=== PATIENT | male | born 1985 | race Caucasian/White ===

== ENCOUNTER 2021-09-04 20:53 | Emergency (ER) | payer BC ==
[~2021-09-04] VITALS: Ht 177.8 cm; Wt 90.7 kg
[2021-09-04] MEDS ORDERED: IV NORMAL SALINE 1000 ML BAG IV ONE (21:30)
--- NOTE | 2021-09-04 21:32 | NUR ---
DR. ENG AT BEDSIDE, MSE IN PROGRESS.
[2021-09-04] MEDS ORDERED: IV NS 1000 ML 1,000 ML IV ONE (22:00)
[2021-09-04 22:43] LABS: CARBON DIOXIDE 22 mmol/L (21-32); CHLORIDE 101 mmol/L (98-107); CREATININE 1.3 mg/dL (0.6-1.3); GLUCOSE 160 mg/dL (74-106); POTASSIUM 3.4 mmol/L (3.5-5.1); UREA NITROGEN, BLOOD 22 mg/dL (7-18)
[2021-09-04] MEDS ORDERED: MIDAZOLAM HCL 2 MG/2 ML VIAL IV ONE (23:00)
[2021-09-04 23:03] LABS: ETHANOL < 3 MG/DL (0-0)
[2021-09-04] MEDS ORDERED: MIDAZOLAM HCL 2 MG/2 ML VIAL ONE (23:03)
[2021-09-04] MEDS ORDERED: KETAMINE HCL 500 MG/10 ML INJ IV ONE (23:45)
[2021-09-04] MEDS ORDERED: KETAMINE HCL 500 MG/10 ML INJ ONE (23:47)
[2021-09-05 00:08] LABS: ALKALINE PHOSPHATASE 85 U/L (50-136); ASPARTATE AMINOTRANSFERASE 101 U/L (15-37); BILIRUBIN,DIRECT 0.2 mg/dL (0.0-0.2); BILIRUBIN,TOTAL 0.5 mg/dL (0.2-1.0); TOTAL PROTEIN, SERUM 7.8 g/dL (6.4-8.2)
[2021-09-05 00:12] LABS: ACETAMINOPHEN < 2.0 ug/mL (10-30)
[2021-09-05 00:20] LABS: HEMATOCRIT 33.9 % (36.7-47.1); MEAN CORPUSCULAR VOLUME 76.8 fL (73.0-96.2); PLATELET COUNT (AUTO) 214 K/uL (152-348)
[2021-09-05] MEDS ORDERED: LORAZEPAM 2 MG/1 ML VIAL ONE (00:54)
[2021-09-05] MEDS ORDERED: HALOPERIDOL LACTATE 5 MG/1 ML VIAL ONE (00:54)
[2021-09-05] MEDS ORDERED: HALOPERIDOL LACTATE 5 MG/1 ML VIAL IM ONE (01:00)
[2021-09-05] MEDS ORDERED: LORAZEPAM 2 MG/1 ML VIAL IM ONE (01:00)
[2021-09-05 01:10] LABS: ALANINE AMINOTRANSFERASE 211 U/L (16-63)
[2021-09-05] MEDS ORDERED: KETAMINE HCL 500 MG/10 ML INJ ONE ×2 (01:23→01:56)
[2021-09-05] MEDS ORDERED: KETAMINE HCL 500 MG/10 ML INJ IV ONE ×2 (01:30→02:00)
--- NOTE | 2021-09-05 01:45 | NUR ---
PT NOTED TO BE IN BED, RESTING COMFORTABLY. BREATHING EVEN AND UNLABORED.
[2021-09-05] MEDS ORDERED: IV NORMAL SALINE 500 ML IV ONE (02:00)
[2021-09-05] MEDS ORDERED: MORPHINE SULFATE 4 MG/1 ML DISP.SYRIN IV ONE (02:15)
[2021-09-05] MEDS ORDERED: MORPHINE SULFATE 4 MG/1 ML DISP.SYRIN ONE (02:21)
[2021-09-05 04:20] LABS: *BILIRUBIN,URIN NEGATIVE (NEGATIVE); *BLOOD, URINE NEGATIVE (NEGATIVE); *CLARITY,URINE CLOUDY (CLEAR); *COLOR,URINE YELLOW (YELLOW); *KETONES,URINE NEGATIVE (NEGATIVE); *UROBILINOGEN,URINE 0.2 E.U./dl (NORMAL); LEUKOCYTE ESTERASE ,URINE NEGATIVE (NEGATIVE); NITRITE, URINE NEGATIVE (NEGATIVE); UGLUCOSE NEGATIVE (NEGATIVE)
[2021-09-05 04:31] LABS: *AMPHETAMINE, URINE NEGATIVE (NEGATIVE); *CANNABINOID, URINE POSITIVE (NEGATIVE); *COCCAINE, URINE NEGATIVE (NEGATIVE); *OPIATE, URINE POSITIVE (NEGATIVE); *PHENCYCLIDINE SCREEN,URINE NEGATIVE (NEGATIVE)
[2021-09-05 04:42] LABS: BACTERIA,URINE NONE SEEN /HPF (NONE SEEN); RBC,URINE 0-3 /HPF (0-3); SQUAMOUS EPITHELIAL CELL,UR NONE SEEN /HPF (NONE SEEN); URINE AMORPHOUS URATE MANY /HPF; WBC,URINE 0-3 /HPF (0-3)
--- NOTE | 2021-09-05 05:03 | NUR ---
PT AMBULATED TO RESTROOM STEADY GAIT. DENIES ANY FINK/DIZZYNESS. NO N/V/D.
--- NOTE | 2021-09-05 07:01 | NUR ---
GAVE REPORT TO MORNING SHIFT. PT NOTED TO BE IN BED, EYES CLOSED. BREATHING EVEN AND UNLABORED. VSS.
--- NOTE | 2021-09-05 09:08 | NUR ---
PT WAS D/C'd TO HOME. D/C INSTRUCTIONS GIVEN TO THE PT BY DR ENG.
[2021-09-05 09:10] VITALS: BP 142/78
[2021-09-05] MEDS ORDERED: NALO4SPR BNOSTRILS (23:08)
== END 2021-09-05 09:11 | disposition home or self-care (01) ==
LOC: ER 20:57
DX: G93.40 Encephalopathy, unspecified (principal); F19.10 Other psychoactive substance abuse, uncomplicated; F11.20 Opioid dependence, uncomplicated; D72.829 Elevated white blood cell count, unspecified; D64.9 Anemia, unspecified; R74.01 Elevation of levels of liver transaminase levels; F43.10 Post-traumatic stress disorder, unspecified
CPT/HCPCS: 36415; 80048; 80076; 80299; 80307; 80320; 81001; 82140; 82550; 84484; 85025; 96361 ×2; 96372; 96374 ×2; 96375; 96376; 99284; J1630; J2060; J2250; J2270; J3490 ×3; J7040 ×3; G0480

== ENCOUNTER 2021-09-05 19:35 | Emergency (ER) | payer BC ==
[~2021-09-05] VITALS: Ht 177.8 cm; Wt 90.7 kg
--- NOTE | 2021-09-05 19:40 | NUR ---
Pt BIB [facility] from home for OD of unknown substance. 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 Patient is A/Ox4
--- NOTE | 2021-09-05 20:30 | NUR ---
[employer] unit [id number] at bedside
[2021-09-05] MEDS ORDERED: NALO4SPR BNOSTRILS (23:08)
--- NOTE | 2021-09-05 23:15 | NUR ---
Patient discharged to home in stable condition. Written and verbal after care instructions given. Patient verbalizes understanding of instructions. Stressed follow up or return to ER for worsening s/s. Patient is A/Ox4, able to walk with steady gait. Patient is not in distress. Patient is assissted by mother
[2021-09-05 23:16] VITALS: BP 136/82
[2021-09-05 23:50] LABS: *AMPHETAMINE, URINE NEGATIVE (NEGATIVE); *CANNABINOID, URINE POSITIVE (NEGATIVE); *COCCAINE, URINE NEGATIVE (NEGATIVE); *OPIATE, URINE POSITIVE (NEGATIVE); *PHENCYCLIDINE SCREEN,URINE NEGATIVE (NEGATIVE)
== END 2021-09-05 23:15 | disposition home or self-care (01) ==
LOC: ER 19:36
DX: T40.1X1A Poisoning by heroin, accidental (unintentional), initial encounter (principal); Y92.013 Bedroom of single-family (private) house as the place of occurrence of the external cause; F43.10 Post-traumatic stress disorder, unspecified; F17.200 Nicotine dependence, unspecified, uncomplicated
CPT/HCPCS: A4663